=== PATIENT | male | born 1965 | race Hispanic/Latino ===

== ENCOUNTER 2020-08-28 07:44 | Emergency (ER) | payer OTHER, MEDICARE | END 2020-08-28 09:29 | disposition home or self-care (01) | LOC: EDH 07:44 | DX: R59.0 Localized enlarged lymph nodes (principal); R21 Rash and other nonspecific skin eruption; R60.9 Edema, unspecified; E11.9 Type 2 diabetes mellitus without complications; I10 Essential (primary) hypertension; Z72.0 Tobacco use ==

== ENCOUNTER 2023-01-29 16:21 | Emergency (ER) | payer OTHER, MEDICARE ==
[~2023-01-29] VITALS: Ht 160 cm; Wt 124.7 kg
[2023-01-29 17:01] VITALS: BP 142/73; PULSE 74; RESP 16; O2SAT 98
[2023-01-29] MEDS ORDERED: AMOX-427 PO (20:18)
[2023-01-29] MEDS ORDERED: DIPH,PERTUSS(ACELL),TET VAC/PF 0.5 ML VIAL IM ONE (20:30)
== END 2023-01-29 20:33 | disposition home or self-care (01) ==
LOC: EDH 16:21
DX: S61.215A Laceration without foreign body of left ring finger without damage to nail, initial encounter (principal); I10 Essential (primary) hypertension; E78.00 Pure hypercholesterolemia, unspecified; E11.9 Type 2 diabetes mellitus without complications; K21.9 Gastro-esophageal reflux disease without esophagitis; J45.909 Unspecified asthma, uncomplicated; W26.8XXA Contact with other sharp object(s), not elsewhere classified, initial encounter; Y93.89 Activity, other specified; Y92.89 Other specified places as the place of occurrence of the external cause; Y99.8 Other external cause status
CPT/HCPCS: 90471; 90715